=== PATIENT | male | born 1985 | race Caucasian/White ===

== ENCOUNTER 2023-01-19 00:30 | Emergency (ER) | payer OTHER ==
[~2023-01-19] VITALS: Ht 175.3 cm; Wt 82.0 kg
[2023-01-19 00:44] VITALS: O2SAT 98
[2023-01-19] MEDS ORDERED: NALOXONE HCL 0.4 MG/ML 1ML VIAL IM ONE (01:00)
[2023-01-19] MEDS ORDERED: NALO4SPR BOTHNSTRLS (02:06)
[2023-01-19 03:05] VITALS: BP 142/70; PULSE 80; RESP 16; TEMP 98.2
== END 2023-01-19 03:16 | disposition home or self-care (01) ==
LOC: ER 00:42
DX: T40.411A Poisoning by fentanyl or fentanyl analogs, accidental (unintentional), initial encounter (principal); Y92.9 Unspecified place or not applicable
CPT/HCPCS: 99283; 96372; J2310